=== PATIENT | male | born 1980 | race Caucasian/White ===

== ENCOUNTER 2017-12-01 00:34 | Observation (INO) | payer SELFPAY ==
[2017-12-01] MEDS ORDERED: Ondansetron HCl/PF 4 MG/2 ML Vial IVP PRN (02:15)
[2017-12-01] MEDS ORDERED: Enoxaparin Sodium 40 MG/0.4 ML SYRINGE SC SCH (02:15)
[2017-12-01] MEDS ORDERED: Ondansetron ODT 4 MG TAB PO PRN (02:15)
[2017-12-01] MEDS ORDERED: Acetaminophen 325 MG TAB PO PRN (02:15)
[2017-12-01] MEDS ORDERED: Albuterol Sulfate 2.5 mg/3 ml Neb NEB PRN (02:24)
[2017-12-01 03:55] VITALS: BMI 34.1
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
[2017-12-01] MEDS: predniSONE 20 MG TAB PO SCH (08:23)
[2017-12-01] MEDS: Famotidine 20 MG TAB PO SCH ×2 (09:47→20:40)
--- NOTE | 2017-12-01 10:25 | PDOC.PN ---
- Objective Resuscitation Status: Resuscitation Status FULL:Full Resuscitation Vital Signs & Weight: Vital Signs (12 hours) Temp Pulse Resp BP BP Pulse Ox 12/01/17 08:18 98.2 F 79 20 115/77 92 L 12/01/17 08:00 98.2 F 79 20 12/01/17 07:29 79 14 12/01/17 07:26 98.2 F 78 18 115/77 91 L 12/01/17 03:08 98.6 F 90 20 130/85 94 L 12/01/17 03:00 98.6 F 90 20 130/85 94 L Weight Weight 266 lb I&O: 11/30/17 12/01/17 12/02/17 06:59 06:59 06:59 Intake Total 460 360 Balance 460 360 Dx/Plan - Plan * . Review of Systems - Medications/Allergies Allergies/Adverse Reactions: Allergies Allergy/AdvReac Type Severity Reaction Status Date / Time iodine Allergy Intermediate Verified 06/21/13 19:27 latex Allergy Intermediate Verified 06/21/13 19:25 Sulfa (Sulfonamide Allergy Intermediate Verified 06/21/13 19:27 Antibiotics) Medications: Current Medications Acetaminophen (Tylenol) 650 mg PO Q4H PRN PRN Reason: Headache/Fever or Pain Albuterol Sulfate (Ventolin) 2.5 mg NEB Q2H PRN PRN Reason: Wheezing Albuterol/Ipratropium (Duoneb) 3 ml NEB [id number] Last Admin: 12/01/17 07:29 Dose: 3 ml Famotidine (Pepcid) 20 mg PO BID [facility] Last Admin: 12/01/17 09:47 Dose: 20 mg Fentanyl (Duragesic) 12 mcg TD Q3D [facility] Last Admin: 12/01/17 06:01 Dose: 12 mcg Fentanyl (Duragesic) 25 mcg TD Q3D [facility] Last Admin: 12/01/17 06:02 Dose: 25 mcg Levofloxacin (Levaquin) 750 mg PO 0600 [facility] Last Admin: 12/01/17 06:02 Dose: 750 mg Ondansetron HCl (Zofran Odt) 4 mg PO Q6H PRN PRN Reason: Nausea/Vomiting Ondansetron HCl (Zofran) 4 mg IVP Q6H PRN PRN Reason: Nausea/Vomiting Prednisone (Prednisone) 20 mg PO QAM-[facility] Last Admin: 12/01/17 08:23 Dose: 20 mg
--- NOTE | 2017-12-01 10:26 | PDOC.EVN ---
Event Note - Event Note Event Note: 37 M with h/o tobacco abuse admitted for respiratory failure, acute bronchitis. He has been started on steroids, nebulizer treatments with improvement. Will continue to monitor.
[2017-12-02 05:15] LABS: Anion Gap 13 mmol/L (10-20); BUN (Urea Nitrogen) 14 mg/dL (8.9-20.6); Calc. Creatinine Clearance 176 mL/min (70-130); Calcium 9.8 mg/dL (7.8-10.44); Carbon Dioxide 29 mmol/L (22-29); Chloride 106 mmol/L (98-107); Estimated GFR-MDRD 87; Glucose 112 mg/dL (70-105); Potassium 3.8 mmol/L (3.5-5.1); Sodium 144 mmol/L (136-145)
[2017-12-02 07:48] VITALS: TEMP 98
[2017-12-02] MEDS: predniSONE 20 MG TAB PO SCH (09:24)
[2017-12-02] MEDS: Famotidine 20 MG TAB PO SCH (09:24)
[2017-12-02 11:26] VITALS: BP 113/77
[2017-12-02 12:08] LABS: Hemoglobin 13.7 g/dL (14.0-18.0); Mean Corpuscular HGB CONC 32.3 g/dL (32.0-36.0); Mean Corpuscular Hemoglobin 31.5 pg (27.0-31.0); Mean Corpuscular Volume 97.6 fl (80.0-94.0); Mean Platelet Volume 7.1 fL (7.4-10.4); Platelet Count 396 thou/uL (130-400); RBC Distribution Width 12.2 % (11.5-14.5); Red Blood Cell (RBC) Count 4.35 mill/uL (4.70-6.10); White Blood Cell (WBC) Count 11.5 thou/uL (4.8-10.8)
[2017-12-02 12:32] LABS: Band 26 % (5-11); Eosinophils 1 % (0-10); Lymphocytes 32 % (21-51); MDiff Complete? YES; Monocytes 3 % (0-10); Neutrophil 38 % (42-75); PLT Morphology Comment Appears Adequate; RBC Morphology Normal
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
== END 2017-12-02 15:11 | disposition home or self-care (01) ==
LOC: ERS 00:34 → INTOOBSV 00:50 → ERHOLD 00:50 → SURG B 02:55
PROVIDERS: ADMIT Internal Medicine Infectious Disease; ATTEND Internal Medicine Infectious Disease
DX: J20.9 Acute bronchitis, unspecified (principal); J96.01 Acute respiratory failure with hypoxia; G89.29 Other chronic pain; G47.30 Sleep apnea, unspecified; K76.0 Fatty (change of) liver, not elsewhere classified; F17.210 Nicotine dependence, cigarettes, uncomplicated; E66.9 Obesity, unspecified; Z68.34 Body mass index [BMI] 34.0-34.9, adult; Z88.2 Allergy status to sulfonamides; Z88.8 Allergy status to other drugs, medicaments and biological substances; Z91.041 Radiographic dye allergy status; Z91.040 Latex allergy status; Z99.89 Dependence on other enabling machines and devices; Z98.890 Other specified postprocedural states
CPT/HCPCS: 36415; 80048; 85007; 85027; 87070; 87205; 94640; 96372; 99406; G0378; J1650; J7506; J7620

== ENCOUNTER 2019-04-26 11:08 | Outpatient (CLI) | payer OTHER ==
--- NOTE | 2019-04-26 11:46 | RAD ---
THORACIC SPINE 4 VIEWS: Date: 04/26/19 INDICATION: Disability examination. Comparison made to thoracic spine films of 11/30/13. FINDINGS: Pedicle screws and rods transfix the mid thoracic spine. Prior fractures and deformities of mid thora cic vertebra have been previously described. This appears to represent T7 and T8 vertebra. The fragme nts appear unchanged in position in the AP projection. Alignment appears maintained in the lateral vi ew. No interval change apparent. IMPRESSION: Traumatic changes in mid thoracic spine with prior fixation, which appears stable from prior exam of 2013. POS: OFF
== END 2019-04-26 11:09 | disposition home or self-care (01) ==
LOC: BICRAD 11:08
PROVIDERS: ATTEND Internal Medicine
DX: Z02.71 Encounter for disability determination (principal); Z98.890 Other specified postprocedural states
CPT/HCPCS: 72070

== ENCOUNTER 2019-09-11 22:45 | Emergency (ER) | payer OTHER | END 2019-09-12 01:05 | disposition home or self-care (01) | LOC: ERS 22:45 | DX: L23.9 Allergic contact dermatitis, unspecified cause (principal); I25.2 Old myocardial infarction; F17.210 Nicotine dependence, cigarettes, uncomplicated; Z79.899 Other long term (current) drug therapy | CPT/HCPCS: 99282 ==

== ENCOUNTER 2023-01-28 11:17 | Outpatient (CLI) | payer MEDICARE, OTHER | END 2023-01-28 11:18 | disposition home or self-care (01) | LOC: BICRAD 11:17 | PROVIDERS: ATTEND Nurse Practitioner Family | DX: M54.2 Cervicalgia (principal); M47.812 Spondylosis without myelopathy or radiculopathy, cervical region | CPT/HCPCS: 72052 ==

== ENCOUNTER 2023-04-05 17:25 | Emergency (ER) | payer OTHER ==
[2023-04-05 17:48] LABS: #Basophils 0.1 thou/uL (0.0-0.2); #Eosinphils 0.4 thou/uL (0.0-0.7); #Monocytes 0.6 thou/uL (0.11-0.59); #Neutrophils 7.3 thou/uL (1.40-6.50); %Eosinophils 3.2 % (0.0-10.0); %Lymphocytes 28.6 % (21.0-51.0); %Monocytes 4.9 % (0.0-10.0); %Neutrophils 62.1 % (42.0-75.0); Hematocrit 52.9 % (42.0-52.0); Hemoglobin 17.8 g/dL (14.0-18.0); Mean Corpuscular HGB CONC 33.6 g/dL (32.0-36.0); Mean Corpuscular Hemoglobin 31.5 pg (27.0-31.0); Mean Corpuscular Volume 93.6 fl (78.0-98.0); Mean Platelet Volume 9.5 fL (7.4-10.4); Platelet Count 272 10x3/uL (130-400); RBC Distribution Width 13.1 % (11.5-14.5); Red Blood Cell (RBC) Count 5.65 mill/uL (4.70-6.10); White Blood Cell (WBC) Count 11.8 10x3/uL (4.8-10.8)
[2023-04-05 18:12] LABS: ALT (SGPT) 98 U/L (8-55); AST (SGOT) 48 U/L (5-34); Albumin 4.9 g/dL (3.5-5.0); Alkaline Phosphatase 141 U/L (40-110); Anion Gap 16 mmol/L (10-20); BUN (Urea Nitrogen) 13 mg/dL (8.9-20.6); Bilirubin, Total 0.4 mg/dL (0.2-1.2); Calc. Creatinine Clearance 0 mL/min (70-130); Calcium 10.6 mg/dL (7.8-10.44); Carbon Dioxide 24 mmol/L (22-29); Chloride 101 mmol/L (98-107); Estimated GFR 78; Globulin 3.4 g/dL (2.4-3.5); Glucose 295 mg/dL (70-105); Lipase 49 U/L (8-78); Potassium 4.4 mmol/L (3.5-5.1); Protein, Total 8.3 g/dL (6.0-8.3); Sodium 137 mmol/L (136-145)
[2023-04-05 18:54] LABS: Bacteria/HPF None Seen HPF (None Seen); Bilirubin Negative (Negative); Blood, Urine Negative (Negative); CAUTI Indications for Culture Dysuria,urgency,freq; Clarity Clear (Clear); Glucose, Urine (Dipstick) Greater than 1000 mg/dL (Negative); Ketone, Urine Negative (Negative); Leukocyte Negative Leu/uL (Negative); Nitrite Negative (Negative); Protein, Urine (Dipstick) 10 mg/dL (Neg-Trace); RBC/HPF 0-3 HPF (0-3); Squamous Epithelial None Seen HPF (0-3); Urobilinogen Normal mg/dL (Less than 2); WBC/HPF None Seen HPF (0-3)
[2023-04-05 18:56] LABS: Urine Culture Reflex No No
== END 2023-04-05 20:15 | disposition home or self-care (01) ==
LOC: ERS 17:25
DX: E11.65 Type 2 diabetes mellitus with hyperglycemia (principal); F17.210 Nicotine dependence, cigarettes, uncomplicated
CPT/HCPCS: 36416; 80053; 81001; 82010; 83690; 85025; 96360; 96361